=== PATIENT | female | born 1990 | race Caucasian/White ===

== ENCOUNTER → 2018-12-30 | Outpatient (CLI) | payer MEDICARE, MEDICAID ==
[~2018-12-30] MED LIST: DESM10SP6; DESMOPRESSIN; GADOBUTROL 7.5 MMOL/7.5 ML (GADAVIST) VIAL IV ONE; GENOTROPIN; HYDR5TAB2 PO; HYDR5TAB8; LEVO125T6 PO; LEVO137T2; LEVOTHYROXINE; NORE-25; NORTEL PO; [UNRECOGNIZED DRUG - CODE]; [UNRECOGNIZED DRUG - CODE]
[2018-12-30 09:45] LABS: BASOPHILS % (AUTO) 1 % (0-10); EOSINOPHILS # (AUTO) 0.2 10^3/uL (0.0-0.3); EOSINOPHILS % (AUTO) 5 % (0-10); HEMATOCRIT 36 % (35-52); HEMOGLOBIN 12.1 G/DL (11.5-16.0); LYMPHOCYTES # (AUTO) 2.3 X 10^3 (1.0-4.0); LYMPHOCYTES % (AUTO) 69 % (12-44); MEAN CORPUSCULAR HEMOGLOBIN 31 PG (25-34); MEAN CORPUSCULAR HGB CONC 34 G/DL (32-36); MEAN CORPUSCULAR VOLUME 91 FL (80-99); MEAN PLATELET VOLUME 8.8 FL (7.4-10.4); MONOCYTES # (AUTO) 0.3 X 10^3 (0.0-1.0); MONOCYTES % (AUTO) 8 % (0-12); NEUTROPHILS # (AUTO) 0.6 X 10^3 (1.8-7.8); NEUTROPHILS % (AUTO) 18 % (42-75); PLATELET COUNT 255 10^3/uL (130-400); RED CELL DISTRIBUTION WIDTH 12.5 % (10.0-14.5); WHITE BLOOD COUNT 3.3 10^3/uL (4.3-11.0)
[2018-12-30 10:06] LABS: ALANINE AMINOTRANSFERASE 16 U/L (0-55); ALBUMIN 4.3 GM/DL (3.2-4.5); ALKALINE PHOSPHATASE 55 U/L (40-136); BILIRUBIN,TOTAL 0.9 MG/DL (0.1-1.0); BUN/CREATININE RATIO 24; CALCIUM 9.6 MG/DL (8.5-10.1); CARBON DIOXIDE 26 MMOL/L (21-32); CHLORIDE 105 MMOL/L (98-107); CREATININE SERUM 0.84 MG/DL (0.60-1.30); GFR ESTIMATED > 60; GLUCOSE 82 MG/DL (70-105); POTASSIUM 4.2 MMOL/L (3.6-5.0); SODIUM 138 MMOL/L (135-145); TOTAL PROTEIN 6.9 GM/DL (6.4-8.2)
--- NOTE | 2018-12-30 11:58 | Diagnostic Imaging Report ---
PROCEDURE: MR imaging of the brain without contrast. TECHNIQUE: Multiplanar, multisequence MR imaging of the brain was performed without contrast. INDICATION: Prior history of pituitary tumor with surgery in 1995. COMPARISON: No prior MRI studies are available for comparison. FINDINGS: Postcontrast study cannot be performed due to inability to obtain IV access. The ventricular size is normal. Sulcal pattern is unremarkable. There is no diffusion restriction identified. The normal expected flow-voids within the carotid siphons are seen. There is no mass effect. No acute intra-axial or extra-axial hemorrhage is seen. Corpus callosum is unremarkable. The sella appears to be empty. No definite sellar or parasellar mass is seen. Suprasellar region is unremarkable. IMPRESSION: Unremarkable noncontrast MRI of the brain. Dictated by: Dictated on workstation # [id number]
== END ==
LOC: RAD 09:08
PROVIDERS: ATTEND Nurse Practitioner Family
DX: E23.7 Disorder of pituitary gland, unspecified (principal); G43.909 Migraine, unspecified, not intractable, without status migrainosus; Z85.841 Personal history of malignant neoplasm of brain; Z98.890 Other specified postprocedural states
CPT/HCPCS: 36415; 70551; 80053; 84443; 85025

== ENCOUNTER 2022-06-12 13:20 | Inpatient (IN) | payer MEDICARE, MEDICAID ==
[~2022-06-12] VITALS: Ht 172 cm; Wt 72.0 kg
[~2022-06-12 13:20] MED LIST changes: -DESM10SP6; +DESM10SP6 NS; -GADOBUTROL 7.5 MMOL/7.5 ML (GADAVIST) VIAL IV ONE; +HYDR5TAB14; -HYDR5TAB8; -LEVO137T2; +LEVO137T2 PO; -[UNRECOGNIZED DRUG - CODE]; +[UNRECOGNIZED DRUG - CODE] INJ
[2022-06-12] MEDS ORDERED: NS IV 1000 ML 1,000 ML IV SCH ×2 (13:45→18:45)
[2022-06-12 14:30] LABS: BASOPHILS % (AUTO) 0 % (0-10); EOSINOPHILS % (AUTO) 0 % (0-10); HEMATOCRIT 34 % (35-52); LYMPHOCYTES # (AUTO) 0.9 10^3/uL (1.0-4.0); LYMPHOCYTES % (AUTO) 14 % (12-44); MEAN CORPUSCULAR HEMOGLOBIN 33 pg (25-34); MEAN CORPUSCULAR HGB CONC 38 g/dL (32-36); MEAN CORPUSCULAR VOLUME 85 fL (80-99); MEAN PLATELET VOLUME 9.1 fL (9.0-12.2); MONOCYTES # (AUTO) 0.2 10^3/uL (0.0-1.0); MONOCYTES % (AUTO) 4 % (0-12); NEUTROPHILS # (AUTO) 5.5 10^3/uL (1.8-7.8); NEUTROPHILS % (AUTO) 82 % (42-75); PLATELET COUNT 278 10^3/uL (130-400); WHITE BLOOD COUNT 6.6 10^3/uL (4.3-11.0)
[2022-06-12 14:39] LABS: ALBUMIN 3.6 GM/DL (3.2-4.5)
[2022-06-12 14:40] LABS: CALCIUM 7.7 MG/DL (8.5-10.1)
[2022-06-12 14:43] LABS: BILIRUBIN,TOTAL 0.7 MG/DL (0.1-1.0)
[2022-06-12 14:45] LABS: CREATININE SERUM 0.72 MG/DL (0.60-1.30)
--- NOTE | 2022-06-12 14:57 | ED General ---
General Chief Complaint: General Problems/Pain Stated Complaint: DEHYDRATION | ADRENAL INEFFICIENCY Nursing Triage Note: WAS SEEN AT 'S OFFICE X2 DAYS AGO FOR FEVER/N/V. WAS PRESCRIBED ZOFRAN AND SENT HOME WITH A DX OF VIRAL INFECTION. COVID ET FLU NEG. PT STATES SHE IS NOT BETTER. HAS A HX OF ADDRENAL INSUF. Source of Information: Patient Exam Limitations: No Limitations History of Present Illness Date Seen by Provider: Jun 12, 2022 Time Seen by Provider: 14:47 Initial Comments This is a 32-year-old female with a history of adrenal insufficiency, Graves' disease, hypothyroidism who presented to the ER for weakness, dizziness, and nausea. Allergies and Home Medications Allergies Coded Allergies: No Known Drug Allergies (Unverified , 02/08/16) Patient Home Medication List Desmopressin (Nonrefrigerated) (Desmopressin 10 Mcg/0.1 ml Spr) 10 Mcg/0.1 Ml [place].pump, (Reported) Entered as Reported by: CARMELITA MCCOLLUM on 02/08/16929 Hydrocortisone (Hydrocortisone) 5 Mg Tablet, (Reported) Entered as Reported by: CARMELITA MCCOLLUM on 02/08/16 09 Levothyroxine Sodium (Levothyroxine Sodium) 137 Mcg Tablet, (Reported) Entered as Reported by: CARMELITA MCCOLLUM on 02/08/16929 [place], Insulin Disposable (Bd Ultra-Fine Pen Needle) 1 Each Dis.needle, (Reported), (DME) Entered as Reported by: CARMELITA MCCOLLUM on 02/08/16929 Norethindrone-Ethinyl Estrad (Dasetta 1-35-28 Tablet) 1 Each Tablet, (Reported) Entered as Reported by: CARMELITA MCCOLLUM on 02/08/16929 Somatropin (Omnitrope) 5 Mg/1.5 Ml Cartridge, (Reported) Entered as Reported by: CARMELITA MCCOLLUM on 02/08/16929 Past Nsmlgzh-Ndilwg-Nawrjn Hx Patient Social History Tobacco Use?: No Substance use?: No Alcohol Use?: No Immunizations Up To Date Second COVID19 Vaccination Daniel: UNKNOWN 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 oz. 58.853805oq; 22.00 BMI Method:Stated Progress/Results/Core Measures Suspected Sepsis SIRS Temperature: Pulse: 68 Respiratory Rate: 16 Laboratory Tests 06/12/22 14:20: White Blood Count 6.6 Blood Pressure 121 /80 Mean: 94 Laboratory Tests 06/12/22 14:20: Creatinine 0.72, Platelet Count 278, Total Bilirubin 0.7 Results/Orders Lab Results Laboratory Tests Test 06/12/22 14:20 06/12/22 14:31 06/12/22 15:00 06/12/22 15:14 Range/Units White Blood Count 6.6 4.3-11.0 10^3/uL Red Blood Count 3.99 3.80-5.11 10^6/uL Hemoglobin 13.0 11.5-16.0 g/dL Hematocrit 34 L 35-52 % Mean Corpuscular Volume 85 80-99 fL Mean Corpuscular Hemoglobin 33 25-34 pg Mean Corpuscular Hemoglobin Concent 38 H 32-36 g/dL Red Cell Distribution Width 10.9 10.0-14.5 % Platelet Count 278 130-400 10^3/uL Mean Platelet Volume 9.1 9.0-12.2 fL Immature Granulocyte % (Auto) 1 % Neutrophils (%) (Auto) 82 H 42-75 % Lymphocytes (%) (Auto) 14 12-44 % Monocytes (%) (Auto) 4 0-12 % Eosinophils (%) (Auto) 0 0-10 % Basophils (%) (Auto) 0 0-10 % Neutrophils # (Auto) 5.5 1.8-7.8 10^3/uL Lymphocytes # (Auto) 0.9 L 1.0-4.0 10^3/uL Monocytes # (Auto) 0.2 0.0-1.0 10^3/uL Eosinophils # (Auto) 0.0 0.0-0.3 10^3/uL Basophils # (Auto) 0.0 0.0-0.1 10^3/uL Immature Granulocyte # (Auto) 0.0 0.0-0.1 10^3/uL Sodium Level 111 *L 135-145 MMOL/L Potassium Level 4.0 3.6-5.0 MMOL/L Chloride Level 85 L 98-107 MMOL/L Carbon Dioxide Level 17 L 21-32 MMOL/L Anion Gap 9 5-14 MMOL/L Blood Urea Nitrogen 10 7-18 MG/DL Creatinine 0.72 0.60-1.30 MG/DL Estimat Glomerular Filtration Rate 112 BUN/Creatinine Ratio 14 Glucose Level 101 70-105 MG/DL Calcium Level 7.7 L 8.5-10.1 MG/DL Corrected Calcium 8.0 L 8.5-10.1 MG/DL Magnesium Level 1.3 L 1.6-2.4 MG/DL Total Bilirubin 0.7 0.1-1.0 MG/DL Aspartate Amino Transf (AST/SGOT) 27 5-34 U/L Alanine Aminotransferase (ALT/SGPT) 21 0-55 U/L Alkaline Phosphatase 42 40-136 U/L Total Protein 6.0 L 6.4-8.2 GM/DL Albumin 3.6 3.2-4.5 GM/DL Influenza Type A (RT-PCR) Not Detected Not Detecte Influenza Type B (RT-PCR) Not Detected Not Detecte SARS-CoV-2 RNA (RT-PCR) Not Detected Not Detecte Thyroid Stimulating Hormone (TSH) 0.00 L 0.35-4.94 UIU/ML Urine Color YELLOW Urine Clarity CLEAR Urine pH 7.5 5-9 Urine Specific [place] 1.020 1.016-1.022 Urine Protein NEGATIVE NEGATIVE Urine Glucose (UA) NEGATIVE NEGATIVE Urine Ketones 1+ H NEGATIVE Urine Nitrite NEGATIVE NEGATIVE Urine Bilirubin NEGATIVE NEGATIVE Urine Urobilinogen 1.0 < = 1.0 MG/DL Urine Leukocyte Esterase NEGATIVE NEGATIVE Urine RBC (Auto) NEGATIVE NEGATIVE Urine RBC NONE /HPF Urine WBC NONE /HPF Urine Squamous Epithelial Cells 0-2 /HPF Urine Crystals NONE /LPF Urine Bacteria TRACE /HPF Urine Casts NONE /LPF Urine Mucus NEGATIVE /LPF Urine Culture Indicated NO My Orders Orders - FREDA MCCORMICK BOX PRESS OPERATOR Ed Iv/Invasive Line Start (06/12/22 13:45) Cbc With Automated Diff (06/12/22 13:45) Ua Culture If Indicated (06/12/22 13:45) Ns Iv 1000 Ml (Sodium Chloride 0.9%) (06/12/22 13:45) Comprehensive Metabolic Panel (06/12/22 14:09) Influenza A And B By Pcr (06/12/22 14:27) Covid 19 Inhouse Test (06/12/22 14:27) Isolation Central Supply Req (06/12/22 14:27) Magnesium (06/12/22 14:51) Thyroid Stimulating Hormone (06/12/22 15:32) Adrenocorticotropic Hormone (06/12/22 15:32) Hydrocortisone Injection (Solu-Cortef In (06/12/22 15:45) Sodium Urine Random (06/12/22 16:18) Osmolality Urine (06/12/22 16:19) Ed Admission (Communication) (06/12/22 16:34) Medications Given in ED Current Medications Medications Dose Ordered Sig/Errol Route Start Time Stop Time Status Last Admin Dose Admin Hydrocortisone Sodium Succinate 100 mg ONCE ONCE IV 06/12/22 15:45 06/12/22 15:46 DC 06/12/22 15:41 100 MG Vital Signs/I&O 06/12/22 13:45 Temp 36.4 Pulse 68 Resp 16 B/P (MAP) 121/80 (94) Pulse Ox 97 O2 Delivery Room Air Capillary Refill : Less Than 3 Seconds Blood Pressure Mean: 94 Departure Communication (Admissions) Time/Spoke to Admitting Phy: 16:26 Dr. Chowdhury Impression Primary Impression: Hyponatremia Additional Impression: Adrenal insufficiency Disposition: ADMITTED INPATIENT Condition: Stable Admissions Decision to Admit Reason: Admit from ER (General) Decision to Admit/Date: Jun 12, 2022 Time/Decision to Admit Time: 16:37 Departure-Patient Inst. Referrals: JEANETH CHOWDHURY MD (PCP/Family) Primary Care Physician FREDA MCCORMICK BOX PRESS OPERATOR Jun 12, 2022 14:57
[2022-06-12 15:21] LABS: BILIRUBIN,URINE NEGATIVE (NEGATIVE); CLARITY,URINE CLEAR; COLOR,URINE YELLOW; GLUCOSE, URINE (UA) NEGATIVE (NEGATIVE); KETONES,URINE 1+ (NEGATIVE); LEUKOCYTE ESTERASE ,URINE NEGATIVE (NEGATIVE); NITRITE,URINE NEGATIVE (NEGATIVE); PH,URINE 7.5 (5-9); PROTEIN,URINE NEGATIVE (NEGATIVE)
[2022-06-12 15:29] LABS: BACTERIA,URINE TRACE /HPF; SQUAMOUS EPITHELIAL CELL,UR 0-2 /HPF
[2022-06-12] MEDS ORDERED: HYDROCORTISONE 100 MG/2 ML (Solu-CORTEF) VIAL IV ONE (15:45)
[2022-06-12 17:10] VITALS: BP 114/81
[2022-06-12] MEDS ORDERED: ACETAMINOPHEN 325 MG TABLET PO PRN (17:30)
[2022-06-12] MEDS ORDERED: SODIUM CHLORIDE 3% 500 ML IV SCH (17:30)
[2022-06-12] MEDS ORDERED: MAGNESIUM 2 GM/50 ML IVPB 50 ML IV ONE (18:15)
[2022-06-12] MEDS ORDERED: PATIENT MAY USE OWN MEDS, ALL IM SCH (18:15)
--- NOTE | 2022-06-12 18:16 | Tele-ICU Progress Note ---
Subjective Date Seen by a Provider: Jun 12, 2022 Time Seen by a Provider: 18:15 Subjective/Events-last exam (Tele-ICU Physician , consultation as per request of PCP Service provided via interactive audio and video telecommunications E-CARE system to a patient admitted to ICU bed in [facility]. Available chart/ vitals / labs / Images reviewed H&P is from ER notes Patient's information available about PMH, Shx, Fhx allergy reviewed inEMR. ROS as per chart and RN report Now in ICU, hemodynamically stable Video assessment done using teleICU camera, rest of exam as per RN Discussed with RN. Consultants: Hospital course: A/P Fever and N/V 2 days duration - reportedly was NEG flu and covid 2 d ago , both negative today again . 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 - no confusion , no Sz -carefully replace with saline ,- received 1L in er , on 100 cc /h noq , check q 4 h H/o Adrenal insufficiency - on hydrocortisone 5 , desmopressin FREE LANCE ARTIST - w/up sent from ER - follow blood sugar H/o hypothyroidism , on synthroid - now TSH =0 , await T3-4 Lines : periph , (Central Line Necessity Reviewed) Nguyen: OG: Nutrition: Analgesia: Anxiety/ delirium VTE Prophylaxis: Stress Ulcer Prophylaxis: na Plans in collaboration with bedside consultants and IM MDs. Discussed with Dr Chowdhury Discussed with RN to reach out if any questions or concerns A total of 33 minutes of critical care time was devoted to this patient today, required to treat and/or prevent further deterioration of critical care condition ( as above ) . I am remotely monitoring this patient from another state. I am unable to do the bedside exam, and history/physical and pertinent information is taken from other notes in the computer and bedside staff. . Sepsis Event Evaluation Height, Weight, BMI Height: 5'8" Weight: 130lbs. oz. 58.704685qi; 22.98 BMI Method:Stated Exam Exam Patient acknowledged, consented, and participated in this virtual visit which was conducted using real time audio/video Vital Signs Date Time Temp Pulse Resp B/P (MAP) Pulse Ox O2 Delivery O2 Flow Rate FiO2 06/12/22 17:45 70 17 110/74 (86) 92 Room Air 06/12/22 17:34 62 06/12/22 17:30 67 12 111/80 (90) 92 Room Air 06/12/22 17:15 66 12 122/69 (86) 92 Room Air 06/12/22 17:10 63 18 114/81 97 Room Air 06/12/22 13:45 36.4 68 16 121/80 (94) 97 Room Air Height & Weight Height: 5'8" Weight: 130lbs. oz. 58.718597qc; 22.98 BMI Method:Stated General Appearance: No Apparent Distress Capillary Refill: Less Than 3 Seconds Results Lab Laboratory Tests 06/12/22 14:20 Assessment/Plan Assessment/Plan 1 JUSTINO MORENO MD Jun 12, 2022 18:16
[2022-06-12] MEDS ORDERED: NS IV 1000 ML 1,000 ML ONE (18:34)
[2022-06-12] MEDS: MAGNESIUM 1 GM/D5W 100 ML IVPB IV SCH ×2 (18:40→20:02)
[2022-06-12] MEDS: methylPREDNISolone 125 MG (Solu-MEDROL) VIAL IVP SCH ×2 (18:40→23:49)
[2022-06-12 20:07] LABS: POTASSIUM 3.8 MMOL/L (3.6-5.0)
[2022-06-12 20:08] LABS: CALCIUM 7.5 MG/DL (8.5-10.1)
[2022-06-12 20:13] LABS: CREATININE SERUM 0.72 MG/DL (0.60-1.30)
[2022-06-13 00:53] LABS: POTASSIUM 3.5 MMOL/L (3.6-5.0)
[2022-06-13 00:54] LABS: CALCIUM 7.3 MG/DL (8.5-10.1)
[2022-06-13 00:59] LABS: CREATININE SERUM 0.65 MG/DL (0.60-1.30)
[2022-06-13] MEDS: SODIUM CHLORIDE 3% 500 ML IV SCH ×2 (02:20→11:32)
[2022-06-13 05:01] LABS: HEMATOCRIT 35 % (35-52); HEMOGLOBIN 13.1 g/dL (11.5-16.0); MEAN CORPUSCULAR HEMOGLOBIN 32 pg (25-34); MEAN CORPUSCULAR HGB CONC 37 g/dL (32-36); MEAN CORPUSCULAR VOLUME 86 fL (80-99); MEAN PLATELET VOLUME 9.3 fL (9.0-12.2); PLATELET COUNT 225 10^3/uL (130-400); WHITE BLOOD COUNT 3.3 10^3/uL (4.3-11.0)
[2022-06-13 05:17] LABS: ALBUMIN 3.7 GM/DL (3.2-4.5); POTASSIUM 3.8 MMOL/L (3.6-5.0)
[2022-06-13 05:18] LABS: CALCIUM 7.6 MG/DL (8.5-10.1)
[2022-06-13 05:21] LABS: BILIRUBIN,TOTAL 0.7 MG/DL (0.1-1.0)
[2022-06-13 05:23] LABS: CREATININE SERUM 0.68 MG/DL (0.60-1.30)
[2022-06-13] MEDS: HYDROCORTISONE 100 MG/2 ML (Solu-CORTEF) VIAL IV SCH ×3 (05:42→21:14)
[2022-06-13] MEDS: LEVOTHYROXINE 25 MCG (LEVOTHROID) TAB PO SCH (05:42)
[2022-06-13] MEDS: LEVOTHYROXINE 112 MCG (LEVOTHROID) TAB PO SCH (05:43)
[2022-06-13] MEDS ORDERED: LEVOTHYROXINE 125 MCG (LEVOTHROID) TABLET PO SCH (06:30)
--- NOTE | 2022-06-13 08:29 | Tele-ICU Progress Note ---
Subjective Date Seen by a Provider: Jun 13, 2022 Time Seen by a Provider: 08:28 Subjective/Events-last exam (Tele-ICU Physician , Progress Note ) Service provided via interactive audio and video telecommunications E-CARE system to a patient admitted to ICU bed in [facility]. Available chart/ vitals / labs / Images reviewed Video assessment done using teleICU camera, rest of exam as per RN Discussed with RN Events overnight : Afebrile hemodynamically stable Respiratory - I/O = Drips: Pressors- no Consultants: Hospital course: (06/12) 32y F from ER with dehydration, hyponatremia NA 111 and adrenal insuff, hypomag Patient is seen today due to persistent hyponatrremia A/P Fever and N/V 2 days duration - reportedly was NEG flu and covid 2 d ago , both negative today again . 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 Discussed with Dr Chowdhury Discussed with RN to reach out if any questions or concerns A total of 33 minutes of critical care time was devoted to this patient today, required to treat and/or prevent further deterioration of critical care condition ( as above ) . I am remotely monitoring this patient from another state. I am unable to do the bedside exam, and history/physical and pertinent information is taken from other notes in the computer and bedside staff. . Sepsis Event Evaluation Height, Weight, BMI Height: 5'8" Weight: 130lbs. oz. 58.185545fn; 22.98 BMI Method:Stated Exam Exam Patient acknowledged, consented, and participated in this virtual visit which was conducted using real time audio/video Vital Signs Date Time Temp Pulse Resp B/P (MAP) Pulse Ox O2 Delivery O2 Flow Rate FiO2 06/13/22 07:46 36.2 06/13/22 07:00 67 06/13/22 06:00 54 19 104/59 (74) 94 Room Air 06/13/22 05:00 72 26 97/82 (87) 96 Room Air 06/13/22 04:00 95 Room Air 06/13/22 04:00 71 18 97/60 (72) 96 Room Air 06/13/22 03:34 36.4 06/13/22 03:00 62 19 110/77 (88) 92 Room Air 06/13/22 02:00 56 26 118/77 (91) 90 Room Air 06/13/22 01:06 55 06/13/22 01:00 56 18 120/77 (91) 92 Room Air 06/13/22 00:00 56 12 115/79 (91) 94 Room Air 06/13/22 00:00 94 Room Air 06/12/22 23:40 36.5 06/12/22 23:00 58 12 113/79 (90) 94 Room Air 06/12/22 22:00 80 22 115/78 (90) 93 Room Air 06/12/22 21:00 58 12 111/76 (88) 90 Room Air 06/12/22 20:29 75 28 114/78 (90) 92 Room Air 06/12/22 20:00 36.4 06/12/22 20:00 93 Room Air 06/12/22 19:32 55 06/12/22 19:00 71 20 113/90 (98) 91 Room Air 06/12/22 18:15 75 17 120/91 (101) 92 Room Air 06/12/22 18:00 75 14 112/80 (91) 91 Room Air 06/12/22 17:45 70 17 110/74 (86) 92 Room Air 06/12/22 17:34 62 06/12/22 17:30 Room Air 06/12/22 17:30 67 12 111/80 (90) 92 Room Air 06/12/22 17:15 66 12 122/69 (86) 92 Room Air 06/12/22 17:10 63 18 114/81 97 Room Air 06/12/22 13:45 36.4 68 16 121/80 (94) 97 Room Air I & O 06/13/22 07:00 Intake Total 2325 ml Output Total 950 ml Balance 1375 ml Height & Weight Height: 5'8" Weight: 130lbs. oz. 58.168637ue; 22.98 BMI Method:Stated General Appearance: No Apparent Distress Capillary Refill: Less Than 3 Seconds Results Lab Laboratory Tests 06/12/22 14:20 06/12/22 19:55 06/13/22 00:35 06/13/22 04:29 Assessment/Plan Assessment/Plan 1 JUSTINO MORENO MD Jun 13, 2022 08:29
--- NOTE | 2022-06-13 08:30 | Diagnostic Imaging Report ---
EXAMINATION: Chest 1 view HISTORY: Central line placement COMPARISON: None available. FINDINGS: Heart size and pulmonary vasculature are normal. The lungs are clear without consolidation, pleural effusion, or pneumothorax. The osseous structures are intact. A right IJ central line is present with the tip projecting over the SVC. IMPRESSION: 1. No acute radiographic abnormality in the chest. 2. Right IJ central line with the tip projecting over the SVC. No pneumothorax. Dictated by: Dictated on workstation # [id number]
[2022-06-13] MEDS ORDERED: PATIENT MAY USE OWN MEDS, ALL PO SCH (09:00)
--- NOTE | 2022-06-13 09:18 | History & Physicial ---
History of Present Illness History of Present Illness Reason for visit/HPI Pt is a 32 y/o female who is known to my clinic. Liz has been ill since Friday of last week. She states that she had nausea, some emesis, and loose stools. She reports feeling weak, shaking, some muscle tremors but not chills. She reports some nasal congestion, slight cough. She denies missing any medications or knowingly having any of her medications come up with emesis. Date of Admission Jun 12, 2022 at 17:22 Date Seen by a Provider: Jun 13, 2022 Time Seen by a Provider: 08:45 I consulted on this patient on 06/13/22 09:18 Attending Physician Jeaneth Chowdhury MD Admitting Physician Admitting Physician: Jeaneth Chowdhury MD Attending Physician: Jeaneth Chowdhury MD Consult EICU Allergies and Home Medications Allergies Coded Allergies: No Known Drug Allergies (Unverified , 02/08/16) Patient Home Medication List Home Medication List Reviewed: Yes Ascorbate Calcium (Vitamin C) 500 Mg Tablet, 1,000 MG PO DAILY, (Reported) Entered as Reported by: KRISTIAN TILLMAN on 06/13/221123 Last Action: Held Calcium Carbonate (Calcium Carbonate) 200 Mg Calcium (500 Mg) Tab.chew, 200 MG PO DAILY, (Reported) Entered as Reported by: KRISTIAN TILLMAN on 06/13/221123 Last Action: Continued Cholecalciferol (Vitamin D3) (Vitamin D3) 25 Mcg (1000 Unit) Capsule, 50 MCG PO DAILY, (Reported) Entered as Reported by: KRISTIAN TILLMAN on 06/13/221123 Last Action: Converted Desmopressin (Nonrefrigerated) (Desmopressin 10 Mcg/0.1 ml Spr) 10 Mcg/[place] (0.1 Ml) [place].pump, 2 SPRAYS NS BID, (Reported) Entered as Reported by: CARMELITA MCCOLLUM on 02/08/16 0930 Last Action: Reviewed Desmopressin Acetate (Desmopressin Acetate) 0.2 Mg Tablet, 0.4 MG PO BID PRN for WHEN OUT OF DESMOPRESSIN SPRAY, (Reported) Entered as Reported by: KRISTIAN TILLMAN on 06/13/221123 Last Action: Reviewed Hydrocortisone (Hydrocortisone) 10 Mg Tablet, 30 MG PO DAILY, (Reported) Entered as Reported by: KRISTIAN TILLMAN on 06/13/221123 Last Action: Reviewed Hydrocortisone (Hydrocortisone) 10 Mg Tablet, 20 MG PO 1900, (Reported) Entered as Reported by: KRISTIAN TILLMAN on 06/13/221123 Last Action: Reviewed Hydrocortisone Sod Succinate (Solu-Cortef) 100 Mg Vial, 100 MG IJ UD PRN for ADRENAL CRISIS, (Reported) Entered as Reported by: KRISTIAN TILLMAN on 06/13/221123 Last Action: Reviewed Levothyroxine Sodium (Levothyroxine Sodium) 137 Mcg Tablet, 137 MCG PO DAILY, (Reported) Entered as Reported by: CARMELITA MCCOLLUM on 02/08/16929 Last Action: Reviewed Multivitamin (Multivitamin) 1 Each Tablet, 1 EACH PO DAILY, (Reported) Entered as Reported by: KRISTIAN TILLMAN on 06/13/221123 Last Action: Held Norethindrone-Ethinyl Estrad ([place] 1-35-28 Tablet) 1 Mg-35 Mcg Tablet, 1 EA PO HS, (Reported) Entered as Reported by: KRISTIAN TILLMAN on 06/13/221123 Last Action: Converted Nystatin (Nystatin) 100,000 Unit/Ml Oral.susp, 5-10 ML PO QID, (Reported) Entered as Reported by: KRISTIAN TILLMAN on 06/13/221123 Last Action: Held Ondansetron (Ondansetron Odt) 4 Mg Tab.rapdis, 4 MG PO QID PRN for NAUSEA/VOMITING-1ST LINE, (Reported) Entered as Reported by: KRISTIAN TILLMAN on 06/13/221123 Last Action: Reviewed Somatropin (Omnitrope) 5 Mg/1.5 Ml (3.3 Mg/Ml) Cartridge, 1 MG INJ HS, (Reported) Entered as Reported by: CARMELITA MCCOLLUM on 02/08/16929 Last Action: Reviewed Discontinued Medications Hydrocortisone (Hydrocortisone) 5 Mg Tablet, (Reported) Discontinued Reason: No Longer Taking Entered as Reported by: CARMELITA MCCOLLUM on 02/08/16929 Last Action: Discontinued [place], Insulin Disposable (Bd Ultra-Fine Pen Needle) 1 Each Dis.needle, (Reported), (DME) Discontinued Reason: No Longer Taking Entered as Reported by: CARMELITA MCCOLLUM on 02/08/16929 Last Action: Discontinued Norethindrone-Ethinyl Estrad (Dasetta 1-35-28 Tablet) 1 Each Tablet, (Reported) Discontinued Reason: No Longer Taking Entered as Reported by: CARMELITA MCCOLLUM on 02/08/16 0930 Last Action: Discontinued Past Saedyao-Nlaehh-Buvwgd Hx Patient Social History Marrital Status: single Number of Children: 0 Number of living children: 0 Living Status: lives in [place], works at [employer] Employed/Student: employed ([employer]) Smoking Status: Never a Smoker 2nd Hand Smoke Exposure: No Recent Hopitalizations: No Have you traveled recently?: No Alcohol Use?: No Pt feels they are or have been: No Surgeries Yes Neurological (craniotomy 1995) Respiratory No Currently Using CPAP: No Currently Using BIPAP: No Cardiovascular No Neurological Brain Tumor Reproductive System Last Menstrual Period: May 20, 2022 Hx Reproductive Disorders: No Sexually Transmitted Disease: No Genitourinary Yes (vulvovaginal atrophy) Musculoskeletal No Endocrine History of Endocrine Disorders: Yes Endocrine Disorders: Adrenal Disease, Hypothyroidsim Are Your Blood Sugars Over 250: No HEENT History of HEENT Disorders: No Loss of Vision: Denies Hearing Impairment: Denies Cancer Yes Brain (brain tumor) Type of Treatment: Surgical Intervention Psychosocial History of Psychiatric Problem: No Integumentary History of Skin or Integumenta: No Reviewed Nursing Assessment Reviewed/Agree w Nursing PMH: Yes Family Medical History Significant Family History: No Pertinent Family Hx Review of Systems Constitutional: No chills, No diaphoresis; dizziness; No fever; weakness EENTM: No hoarseness, No nose pain Respiratory: No cough, No short of breath Cardiovascular: No chest pain Gastrointestinal: No abdominal pain, No constipation, No diarrhea, No loss of appetite, No melena; nausea Genitourinary: no symptoms reported Skin: no symptoms reported Psychiatric/Neurological: No Symptoms Reported; Denies Anxiety, Denies Depressed; Weakness All Other Systems Reviewed Negative Unless Noted: Yes Physical Exam Vital Signs Vital Signs - First Documented 06/12/22 13:45 Temp 36.4 Pulse 68 Resp 16 B/P (MAP) 121/80 (94) Pulse Ox 97 O2 Delivery Room Air Capillary Refill : Less Than 3 Seconds Height, Weight, BMI Height: 5'8" Weight: 130lbs. oz. 58.503242pc; 22.98 BMI Method:Stated General Appearance: No Apparent Distress, WD/WN Eyes: Bilateral Eye Normal Inspection, Bilateral Eye PERRL, Bilateral Eye EOMI HEENT: PERRL/EOMI, Pharynx Normal Neck: Full Range of Motion, Normal Inspection, Non Tender, Supple Respiratory: Chest Non Tender, Lungs Clear, Normal Breath Sounds, No Accessory Muscle Use, No Respiratory Distress Cardiovascular: Regular Rate, Rhythm Gastrointestinal: Normal Bowel Sounds, No Organomegaly, No Pulsatile Mass, Non Tender, Soft Rectal: Deferred Extremity: Normal Capillary Refill, Normal Inspection, Non Tender, No Calf Tenderness, No Pedal Edema Neurologic/Psychiatric: Alert, Oriented x3, No Motor/Sensory Deficits, Normal Mood/Affect, information services assistant II-XII Norm as Tested Skin: Normal Color, Warm/Dry Lymphatic: No Adenopathy Assessment/Plan Assessment and Plan Severe Hyponatremia Hypocalcemia Chronic Hypothyroidism Muscle Weakness Chronic Adrenal Insufficiency Chronic Steroid use Severe Hyponatremia due to previous viral illness - pt was started on normal saline on admission, pt was given hypertonic saline starting at 3AM - slowly increased sodium level, dose will be decreased - and monitoring sodium level every 4 hours. Hypocalcemia - continue with oral supplementation Chronic Hypothyroidism - waiting on rest of thyroid labs, resume home regimen Muscle Weakness - due to hyponatremia Chronic Adrenal Insufficiency - restarted home desmopressin, pt given stress doses of hydrocortisone. Chronic Steroid use - continue with current management. dvt prophylaxis with scd's gi prophylaxis with ppi Admission Diagnosis Severe Hyponatremia Hypocalcemia Chronic Hypothyroidism Muscle Weakness Chronic Adrenal Insufficiency Chronic Steroid use Admission Status: Inpatient Order (span 2 midnights) Reason for Inpatient Admission: inpatient admission for severe hyponatremia JEANETH CHOWDHURY MD Jun 13, 2022 09:18
[2022-06-13 09:28] LABS: CALCIUM 7.7 MG/DL (8.5-10.1); CREATININE SERUM 0.71 MG/DL (0.60-1.30); POTASSIUM 3.3 MMOL/L (3.6-5.0)
[2022-06-13] MEDS ORDERED: ASCO-262 PO (11:24)
[2022-06-13] MEDS ORDERED: NORE-18 PO (11:24)
[2022-06-13] MEDS ORDERED: CALC500T47 PO (11:24)
[2022-06-13] MEDS ORDERED: CHOL10007 PO (11:24)
[2022-06-13] MEDS ORDERED: NYST1000 PO (11:24)
[2022-06-13] MEDS ORDERED: ONDA4TAB11 PO (11:24)
[2022-06-13] MEDS ORDERED: MULT-1136 PO (11:24)
[2022-06-13] MEDS ORDERED: HYDR100V3 IJ (11:24)
[2022-06-13] MEDS ORDERED: DESM0.2T29 PO (11:24)
[2022-06-13] MEDS ORDERED: HYDR-4164 PO ×2 (11:24)
[2022-06-13] MEDS: PATIENT'S OWN MED (RX USE ONLY) PO SCH ×2 (11:32→20:25)
[2022-06-13 13:15] LABS: CALCIUM 7.8 MG/DL (8.5-10.1); CREATININE SERUM 0.69 MG/DL (0.60-1.30)
[2022-06-13] MEDS ORDERED: KCL 20 MEQ TAB (K-DUR) PO NR (13:45)
[2022-06-13] MEDS ORDERED: NS IV 500 ML 500 ML IV PRN (13:45)
[2022-06-13 17:09] LABS: CALCIUM 8.4 MG/DL (8.5-10.1); CREATININE SERUM 0.76 MG/DL (0.60-1.30); POTASSIUM 3.6 MMOL/L (3.6-5.0)
--- NOTE | 2022-06-13 19:45 | Consultation - Surgery ---
History of Present Illness History of Present Illness Patient Consulted On(heather/time) 06/13/22 07:40 Date Seen by Provider: Jun 13, 2022 Time Seen by Provider: 07:00 History of Present Illness Consult requested by eICU for central line placement. Patient is a 32 year old female with chronic adrenal insufficiency. She has not been feeling well since last weekend. She was seen by urgent care and was told she had a virus. She has been having fever, nausea and vomiting. Not able to keep things down. Also with loose stools. Some upper respiratory symptoms of congestion and cough. Still not feeling well so went to ED yesterday. Was found to have hyponatremia. Continued to be low so was started on 3% sodium chloride and needing central line. Allergies and Home Medications Allergies Coded Allergies: No Known Drug Allergies (Unverified , 02/08/16) Patient Home Medication List Home Medication List Reviewed: Yes Ascorbate Calcium (Vitamin C) 500 Mg Tablet, 1,000 MG PO DAILY, (Reported) Entered as Reported by: KRISTIAN TILLMAN on 06/13/221123 Last Action: Held Calcium Carbonate (Calcium Carbonate) 200 Mg Calcium (500 Mg) Tab.chew, 200 MG PO DAILY, (Reported) Entered as Reported by: KRISTIAN TILLMAN on 06/13/221123 Last Action: Continued Cholecalciferol (Vitamin D3) (Vitamin D3) 25 Mcg (1000 Unit) Capsule, 50 MCG PO DAILY, (Reported) Entered as Reported by: KRISTIAN TILLMAN on 06/13/221123 Last Action: Converted Desmopressin (Nonrefrigerated) (Desmopressin 10 Mcg/0.1 ml Spr) 10 Mcg/[place] (0.1 Ml) [place].pump, 2 SPRAYS NS BID, (Reported) Entered as Reported by: CARMELITA MCCOLLUM on 02/08/16 0930 Last Action: Reviewed Desmopressin Acetate (Desmopressin Acetate) 0.2 Mg Tablet, 0.4 MG PO BID PRN for WHEN OUT OF DESMOPRESSIN SPRAY, (Reported) Entered as Reported by: KRISTIAN TILLMAN on 06/13/221123 Last Action: Reviewed Hydrocortisone (Hydrocortisone) 10 Mg Tablet, 30 MG PO DAILY, (Reported) Entered as Reported by: KRISTIAN TILLMAN on 06/13/221123 Last Action: Reviewed Hydrocortisone (Hydrocortisone) 10 Mg Tablet, 20 MG PO 1900, (Reported) Entered as Reported by: KRISTIAN TILLMAN on 06/13/221123 Last Action: Reviewed Hydrocortisone Sod Succinate (Solu-Cortef) 100 Mg Vial, 100 MG IJ UD PRN for ADRENAL CRISIS, (Reported) Entered as Reported by: KRISTIAN TILLMAN on 06/13/221123 Last Action: Reviewed Levothyroxine Sodium (Levothyroxine Sodium) 137 Mcg Tablet, 137 MCG PO DAILY, (Reported) Entered as Reported by: CARMELITA MCCOLLUM on 02/08/16929 Last Action: Reviewed Multivitamin (Multivitamin) 1 Each Tablet, 1 EACH PO DAILY, (Reported) Entered as Reported by: KRISTIAN TILLMAN on 06/13/221123 Last Action: Held Norethindrone-Ethinyl Estrad ([place]lyacen 1-35-28 Tablet) 1 Mg-35 Mcg Tablet, 1 EA PO HS, (Reported) Entered as Reported by: KRISTIAN TILLMAN on 06/13/221123 Last Action: Converted Nystatin (Nystatin) 100,000 Unit/Ml Oral.susp, 5-10 ML PO QID, (Reported) Entered as Reported by: KRISTIAN TILLMAN on 06/13/221123 Last Action: Held Ondansetron (Ondansetron Odt) 4 Mg Tab.rapdis, 4 MG PO QID PRN for NAUSEA/VOMITING-1ST LINE, (Reported) Entered as Reported by: KRISTIAN TILLMAN on 06/13/221123 Last Action: Reviewed Somatropin (Omnitrope) 5 Mg/1.5 Ml (3.3 Mg/Ml) Cartridge, 1 MG INJ HS, (Reported) Entered as Reported by: CARMELITA MCCOLLUM on 02/08/16929 Last Action: Reviewed Discontinued Medications Hydrocortisone (Hydrocortisone) 5 Mg Tablet, (Reported) Discontinued Reason: No Longer Taking Entered as Reported by: CARMELITA MCCOLLUM on 02/08/16929 Last Action: Discontinued [place], Insulin Disposable (Bd Ultra-Fine Pen Needle) 1 Each Dis.needle, (Reported), (DME) Discontinued Reason: No Longer Taking Entered as Reported by: CARMELITA MCCOLLUM on 02/08/16929 Last Action: Discontinued Norethindrone-Ethinyl Estrad ([place] 1-35-28 Tablet) 1 Each Tablet, (Reported) Discontinued Reason: No Longer Taking Entered as Reported by: CARMELITA MCCOLLUM on 02/08/16 7876 Last Action: Discontinued Past Wmkoiml-Dpvfjv-Ecsimr Hx Patient Social History Smoking Status: Never a Smoker 2nd Hand Smoke Exposure: No Recent Hopitalizations: No Alcohol Use?: No Have you traveled recently?: No Surgeries History of Surgeries: Yes Surgeries: Neurological (craniotomy 1995) Respiratory History of Respiratory Disorde: No Cardiovascular History of Cardiac Disorders: No Neurological Neurological Disorders: Brain Tumor Reproductive System Hx Reproductive Disorders: No Sexually Transmitted Disease: No Genitourinary History of Genitourinary Disor: Yes (vulvovaginal atrophy) Musculoskeletal History of Musculoskeletal Dis: No Endocrine History of Endocrine Disorders: Yes Endocrine Disorders: Adrenal Disease, Hypothyroidsim HEENT History of HEENT Disorders: No Loss of Vision: Denies Hearing Impairment: Denies Cancer History of Cancer: Yes Cancer: Brain (brain tumor) Psychosocial History of Psychiatric Problem: No Integumentary History of Skin or Integumenta: No Reviewed Nursing Assessment Reviewed/Agree w Nursing PMH: Yes Family Medical History Significant Family History: No Pertinent Family Hx Review of Systems-General Constitutional: fever, weakness EENTM: No blurred vision, No double vision Respiratory: cough; No dyspnea on exertion, No short of breath Cardiovascular: No chest pain, No palpitations Gastrointestinal: No abdominal pain; nausea, vomiting Genitourinary: No decreased output, No discharge Musculoskeletal: No back pain, No joint pain Skin: No change in color, No change in hair/nails Psychiatric/Neurological: Denies Anxiety, Denies Depressed, Denies Emotional Problems All Other Systems Reviewed Negative Unless Noted: Yes (Negative excepted noted.) Physical Exam-General Problems Physical Exam Vital Signs Vital Signs - First Documented 06/12/22 13:45 Temp 36.4 Pulse 68 Resp 16 B/P (MAP) 121/80 (94) Pulse Ox 97 O2 Delivery Room Air Capillary Refill : Less Than 3 Seconds General Appearance: WD/WN, no apparent distress HEENT: PERRL/EOMI, normal ENT inspection Neck: non-tender, supple Respiratory: chest non-tender, no respiratory distress, no accessory muscle use Cardiovascular: regular rate, rhythm, no JVD Gastrointestinal: non tender, soft Rectal: deferred Back: no CVA tenderness, no vertebral tenderness Extremities: normal range of motion, normal inspection Neurologic/Psychiatric: alert, normal mood/affect, oriented x 3 Skin: normal color, warm/dry Lymphatic: no adenopathy Data Review Labs Laboratory Tests 06/12/22 19:55: Sodium Level 113*L, Potassium Level 3.8, Chloride Level 86L, Carbon Dioxide Level 14L, Anion Gap 13, Blood Urea Nitrogen 8, Creatinine 0.72, Estimat Glomerular Filtration Rate 112, BUN/Creatinine Ratio 11, Glucose Level 117H, Calcium Level 7.5L 06/12/22 20:36: Glucometer 131H 06/13/22 00:35: Sodium Level 112*L, Potassium Level 3.5L, Chloride Level 84L, Carbon Dioxide Level 14L, Anion Gap 14, Blood Urea Nitrogen 7, Creatinine 0.65, Estimat Glomerular Filtration Rate 118, BUN/Creatinine Ratio 11, Glucose Level 110H, Calcium Level 7.3L 06/13/22 04:29: Sodium Level 114*L, Potassium Level 3.8, Chloride Level 86L, Carbon Dioxide Level 15L, Anion Gap 13, Blood Urea Nitrogen 7, Creatinine 0.68, Estimat Glomerular Filtration Rate 117, BUN/Creatinine Ratio 10, Glucose Level 113H, Calcium Level 7.6L, White Blood Count 3.3L, Red Blood Count 4.13, Hemoglobin 13.1, Hematocrit 35, Mean Corpuscular Volume 86, Mean Corpuscular Hemoglobin 32, Mean Corpuscular Hemoglobin Concent 37H, Red Cell Distribution Width 10.7, Platelet Count 225, Mean Platelet Volume 9.3, Corrected Calcium 7.8L, Total Bilirubin 0.7, Aspartate Amino Transf (AST/SGOT) 27, Alanine Aminotransferase (ALT/SGPT) 22, Alkaline Phosphatase 38L, Total Protein 6.0L, Albumin 3.7 06/13/22 08:57: Sodium Level 118*L, Potassium Level 3.3L, Chloride Level 89L, Carbon Dioxide Level 21, Anion Gap 8, Blood Urea Nitrogen 8, Creatinine 0.71, Estimat Glomerular Filtration Rate 114, BUN/Creatinine Ratio 11, Glucose Level 148H, Calcium Level 7.7L 06/13/22 10:36: Glucometer 135H 06/13/22 12:45: Sodium Level 119*L, Potassium Level 3.0L, Chloride Level 91L, Carbon Dioxide Level 21, Anion Gap 7, Blood Urea Nitrogen 10, Creatinine 0.69, Estimat Glomerular Filtration Rate 117, BUN/Creatinine Ratio 14, Glucose Level 135H, Calcium Level 7.8L 06/13/22 15:48: Glucometer 110 06/13/22 16:48: Sodium Level 128L, Potassium Level 3.6, Chloride Level 96L, Carbon Dioxide Level 22, Anion Gap 10, Blood Urea Nitrogen 10, Creatinine 0.76, Estimat Glomerular Filtration Rate 105, BUN/Creatinine Ratio 13, Glucose Level 108H, Calcium Level 8.4L Microbiology 06/12/22 MRSA Screen - Final, Complete MRSA not isolated Assessment/Plan Assessment/Plan Assessment/Plan hyponatremia chronic adrenal insufficiency Patient being given hypertonic saline and needing central venous access we discussed risk and benefits of procedure and she wishes to proceed. consent was obtained central line placed chest x ray pending will sign off, call if needed. VISHNU REYES DO Jun 13, 2022 19:45
[2022-06-13 20:16] LABS: CALCIUM 8.2 MG/DL (8.5-10.1); CREATININE SERUM 0.78 MG/DL (0.60-1.30); POTASSIUM 3.6 MMOL/L (3.6-5.0)
--- NOTE | 2022-06-13 20:21 | OPERATIVE REPORT ---
DATE OF SERVICE: 06/13/2022 PREOPERATIVE DIAGNOSES: Hyponatremia and adrenal insufficiency. POSTOPERATIVE DIAGNOSES: Hyponatremia and adrenal insufficiency. PROCEDURE: Right internal jugular vein ultrasound-guided central line placement. SURGEON: Vishnu Salgado DO. ANESTHESIA: Local. ESTIMATED BLOOD LOSS: Minimal. COMPLICATIONS: None. INDICATIONS: The patient is a 32-year-old female with adrenal insufficiency and hyponatremia. The patient needing central line placement for further medical management. She understands risks and benefits of procedure and wished to proceed. Consent was signed on chart. DESCRIPTION OF PROCEDURE: The patient was prepped and draped in sterile fashion. Timeout was performed. Ultrasound was used to isolate the right internal jugular vein after she was positioned. Local anesthetic with 3 mL of 1% lidocaine was used to anesthetize the area. The right internal jugular vein was then accessed under ultrasound guidance. Dark nonpulsatile blood was withdrawn. The guidewire was inserted through the needle and the needle was removed. An 11 blade scalpel was used to make a small skin incision. Dilator was then advanced over the wire and removed. The triple lumen catheter was then advanced over the guidewire and the wire was removed. All three ports were accessed and then flushed without difficulty. The catheter was secured with a 3-0 silk suture. The area was washed and dried and sterile bandage was applied. The patient tolerated the procedure well with no complications. Chest x-ray pending. Job ID: [id number] DocumentID: [id number] Dictated Date: 06/13/2022 16:32:59 Bridge Welder Date: 06/13/2022 20:18:00 Dictated By: VISHNU SALGADO DO
[2022-06-14 03:20] LABS: BASOPHILS % (AUTO) 0 % (0-10); EOSINOPHILS % (AUTO) 0 % (0-10); HEMATOCRIT 34 % (35-52); HEMOGLOBIN 12.4 g/dL (11.5-16.0); LYMPHOCYTES # (AUTO) 0.7 10^3/uL (1.0-4.0); LYMPHOCYTES % (AUTO) 8 % (12-44); MEAN CORPUSCULAR HEMOGLOBIN 32 pg (25-34); MEAN CORPUSCULAR HGB CONC 37 g/dL (32-36); MEAN CORPUSCULAR VOLUME 88 fL (80-99); MEAN PLATELET VOLUME 9.4 fL (9.0-12.2); MONOCYTES # (AUTO) 0.5 10^3/uL (0.0-1.0); MONOCYTES % (AUTO) 6 % (0-12); NEUTROPHILS # (AUTO) 7.3 10^3/uL (1.8-7.8); NEUTROPHILS % (AUTO) 85 % (42-75); PLATELET COUNT 244 10^3/uL (130-400); WHITE BLOOD COUNT 8.6 10^3/uL (4.3-11.0)
[2022-06-14 03:29] LABS: POTASSIUM 3.9 MMOL/L (3.6-5.0)
[2022-06-14 03:34] LABS: CREATININE SERUM 0.72 MG/DL (0.60-1.30); PHOSPHORUS 1.3 MG/DL (2.3-4.7)
[2022-06-14 03:37] LABS: MAGNESIUM 2.3 MG/DL (1.6-2.4)
[2022-06-14 04:16] LABS: ATYPICAL LYMPHOCYTES 1 %; LYMPHOCYTES % (MANUAL) 7 %; MONOCYTES % (MANUAL) 6 %; NEUTROPHILS % (MANUAL) 86 %; RBC MORPH NORMAL
[2022-06-14] MEDS ORDERED: KCL 20 MEQ TAB (K-DUR) PO SCH (06:00)
[2022-06-14] MEDS ORDERED: POTASSIUM CL 10MEQ/50ML IVPB 50 ML IV SCH (06:00)
[2022-06-14] MEDS ORDERED: MAGNESIUM 1 GM/100 ML IVPB 100 ML IV SCH (06:00)
[2022-06-14] MEDS: HYDROCORTISONE 100 MG/2 ML (Solu-CORTEF) VIAL IV SCH (06:23)
[2022-06-14] MEDS: LEVOTHYROXINE 112 MCG (LEVOTHROID) TAB PO SCH (06:23)
[2022-06-14] MEDS: LEVOTHYROXINE 25 MCG (LEVOTHROID) TAB PO SCH (06:23)
[2022-06-14] MEDS ORDERED: POTASSIUM PHOSPHATE INJ 30 MM in NS (IVPB) 250 ML IV ONE (07:00)
--- NOTE | 2022-06-14 08:06 | Discharge Summary ---
Diagnosis/Chief Complaint Date of Admission Jun 12, 2022 at 17:22 Date of Discharge 06/14/22 Discharge Date: Jun 14, 2022 Discharge Time: 11:00 Admission Diagnosis Admission Diagnosis Severe Hyponatremia Hypocalcemia Chronic Hypothyroidism Muscle Weakness Chronic Adrenal Insufficiency Chronic Steroid use Discharge Diagnosis Severe Hyponatremia Hypocalcemia Chronic Hypothyroidism Muscle Weakness Chronic Adrenal Insufficiency Chronic Steroid use Reason Hospital Visit Pt is a 32 y/o female who is known to my clinic. Liz has been ill since Friday of last week. She states that she had nausea, some emesis, and loose stools. She reports feeling weak, shaking, some muscle tremors but not chills. She reports some nasal congestion, slight cough. She denies missing any medications or knowingly having any of her medications come up with emesis. Discharge Summary Procedures: central line Consultations eicu - critical care general surgery for central line placement Discharge Physical Examination Allergies: Coded Allergies: No Known Drug Allergies (Unverified , 02/08/16) Vitals & I&Os Vital Signs Date Time Temp Pulse Resp B/P (MAP) Pulse Ox O2 Delivery O2 Flow Rate FiO2 06/14/22 10:00 57 109/63 (78) 96 Room Air 06/14/22 07:45 36.8 06/13/22 22:00 12 General Appearance: Alert, Oriented X3, Cooperative, No Acute Distress HEENT: Atraumatic, PERRLA, Mucous Memb Moist/[place] Respiratory: Clear to Auscultation, Normal Air Movement Cardiovascular: Regular Rate, No Murmurs Abdominal: Normal Bowel Sounds, Soft, No Tenderness Extremities: No Clubbing, No Cyanosis Skin: No Rashes, No Breakdown, No Significant Lesion Neuro: Normal Speech Psych/Mental Status: Mental Status NL, Mood NL Hospital Course Was the Problem List Reviewed?: Yes Severe Hyponatremia Hypocalcemia Chronic Hypothyroidism Muscle Weakness Chronic Adrenal Insufficiency Chronic Steroid use Severe Hyponatremia due to previous viral illness - pt was started on normal saline on admission, pt was given hypertonic saline starting at 3AM on 06/13/22 with slowly increased sodium level - this was stopped and pt was started on normal saline solution with sodium level at 131 this morning. We will have Liz get a chemistry panel next Friday. - she was encouraged to start drinking some gatorade/powerade or other electrolyte solution to keep her levels improved. Hypocalcemia - continue with oral supplementation Chronic Hypothyroidism - resumed home regimen - will consider change of her medication as outp atient. Muscle Weakness - improved Chronic Adrenal Insufficiency with Chronic Steroid use - restarted home desmopressin, pt given stress doses of hydrocortisone. - will continue with higher dose of hydrocortisone - 50mg bid x 5 days then go back down to hydrocortisone split dosing of 30mg AM and 20mg 1900. discharge to home today with pt to have outpatient labs on 06/17/22 dvt prophylaxis with scd's gi prophylaxis with ppi Pending Labs Laboratory Tests 06/14/22 03:10: White Blood Count 8.6, Red Blood Count 3.84, Hemoglobin 12.4, Hematocrit 34, Mean Corpuscular Volume 88, Mean Corpuscular Hemoglobin 32, Mean Corpuscular Hemoglobin Concent 37, Red Cell Distribution Width 11.4, Platelet Count 244, Mean Platelet Volume 9.4, Immature Granulocyte % (Auto) 1, Neutrophils (%) (Auto) 85, Lymphocytes (%) (Auto) 8, Monocytes (%) (Auto) 6, Eosinophils (%) (Auto) 0, Basophils (%) (Auto) 0, Neutrophils # (Auto) 7.3, Lymphocytes # (Auto) 0.7, Monocytes # (Auto) 0.5, Eosinophils # (Auto) 0.0, Basophils # (Auto) 0.0, Immature Granulocyte # (Auto) 0.1, Neutrophils % (Manual) 86, Lymphocytes % (Manual) 7, Monocytes % (Manual) 6, Atypical Lymphocytes 1, Blood Morphology Comment NORMAL, Sodium Level 131, Potassium Level 3.9, Chloride Level 101, Carbon Dioxide Level 21, Anion Gap 9, Blood Urea Nitrogen 14, Creatinine 0.72, Estimat Glomerular Filtration Rate 112, BUN/Creatinine Ratio 19, Glucose Level 131, Calcium Level 8.0, Phosphorus Level 1.3, Magnesium Level 2.3 06/14/22 06:16: Glucometer 119 06/14/22 10:10: Sodium Level 131, Potassium Level 3.6, Chloride Level 100, Carbon Dioxide Level 22, Anion Gap 9, Blood Urea Nitrogen 14, Creatinine 0.73, Estimat Glomerular Filtration Rate 111, BUN/Creatinine Ratio 19, Glucose Level 120, Calcium Level 8.0 06/14/22 10:43: Glucometer 107 Discharge Condition at discharge improved Instructions to patient/family Please see electronic discharge instructions given to patient. Discharge Medications Active Scripts Active Hydrocortisone 20 Mg Tablet 50 Mg PO BID 5 Days take 2.5 pills bid x 5 days then resume previous dosing regimen of hydrocortisone Reported Vitamin D3 (Cholecalciferol (Vitamin D3)) 25 Mcg (1000 Unit) Capsule 50 Mcg PO DAILY Vitamin C (Ascorbate Calcium) 500 Mg Tablet 1,000 Mg PO DAILY Calcium Carbonate 200 Mg Calcium (500 Mg) Tab.chew 200 Mg PO DAILY Multivitamin 1 Each Tablet 1 Each PO DAILY Solu-Cortef (Hydrocortisone Sod Succinate) 100 Mg Vial 100 Mg IJ UD PRN Desmopressin Acetate 0.2 Mg Tablet 0.4 Mg PO BID PRN TAKES 2 (0.2MG) TABS Hydrocortisone 10 Mg Tablet 20 Mg PO 1900 TAKES 2 (10MG) TABS Hydrocortisone 10 Mg Tablet 30 Mg PO DAILY TAKES 3 (10MG) TABS Alyacen 1-35-28 Tablet (Norethindrone-Ethinyl Estrad) 1 Mg-35 Mcg Tablet 1 Ea PO HS Ondansetron Odt (Ondansetron) 4 Mg Tab.rapdis 4 Mg PO QID PRN Levothyroxine Sodium 137 Mcg Tablet 137 Mcg PO DAILY Omnitrope (Somatropin) 5 Mg/1.5 Ml (3.3 Mg/Ml) Cartridge 1 Mg INJ HS Desmopressin 10 Mcg/0.1 ml Spr (Desmopressin (Nonrefrigerated)) 10 Mcg/[place] (0.1 Ml) [place].pump 2 Sprays NS BID JEANETH WOMACK MD Jun 14, 2022 08:06
--- NOTE | 2022-06-14 08:09 | Discharge Inst-Simple/Standard ---
Discharge Inst-Standard Reconcile Patient Problems Problems Reviewed?: Yes Patient Instructions/Follow Up Plan of Care/Instructions/FU: 2 WK [facility]U CLINIC GET OUTPATIENT LABS ON 06/17/22 AT THE HOSPITAL Activity as Tolerated: Yes Discharge Diet: Regular Diet Return to The Hospital For: ANY WORSENING DIZZINESS, WEAKNESS, OR SYMPTOMS SIMILAR TO ADMISSION SYMPTOMS OR LIFETHREATENING ILLNESS/INJURY JEANETH WOMACK MD Jun 14, 2022 08:09
[2022-06-14] MEDS: PATIENT'S OWN MED (RX USE ONLY) PO SCH (08:27)
[2022-06-14] MEDS ORDERED: CALCIUM CARBONATE 500 MG (TUMS) TAB.CHEW PO SCH ×2 (09:00)
[2022-06-14] MEDS ORDERED: VITAMIN D3 25 MCG (1,000 UNITS) TABLET PO SCH (09:00)
[2022-06-14] MEDS ORDERED: HYDROCORTISONE 20 MG (CORTEF) TAB PO SCH (09:00)
[2022-06-14] MEDS ORDERED: NON-FORMULARY MEDICATION 1 EA EA (Cholecalciferol (Vitamin D3) (Vitamin D3) 50 MCG) PO SCH (09:00)
[2022-06-14 10:32] LABS: POTASSIUM 3.6 MMOL/L (3.6-5.0)
[2022-06-14 10:38] LABS: CREATININE SERUM 0.73 MG/DL (0.60-1.30)
--- NOTE | 2022-06-14 10:42 | Tele-ICU Progress Note ---
Subjective Date Seen by a Provider: Jun 14, 2022 Time Seen by a Provider: 08:45 Subjective/Events-last exam (Tele-ICU Physician , Progress Note ) Service provided via interactive audio and video telecommunications E-CARE system to a patient admitted to ICU bed in [facility]. Available chart/ vitals / labs / Images reviewed Video assessment done using teleICU camera, rest of exam as per RN Discussed with RN Events overnight : Afebrile hemodynamically stable Respiratory - I/O = Drips: Pressors- no Consultants: Hospital course: (06/12) 32y F from ER with dehydration, hyponatremia NA 111 and adrenal insuff, hypomag Patient is seen today due to persistent hyponatrremia A/P Fever and N/V 2 days duration - reportedly was NEG flu and covid 2 d ago , both negative today again . No abd pain or any localized symptoms now - suspected viral illness vs adrenal crisis( which can be provoked by infection - off abx , follow Acute adrenal failure ( not a crisis given NL BP ) -hydrocortisone (100 mg IV bolus given , will follow with 50 mg tid po Hyponatremia 11 on admission - baseline and duration unclear suspected acute , suspected due to Na loss and volume depletion caused by mineralocorticoid deficiency, on Desmopressin [place]US[place] FOLDER . 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 Discussed with Dr Chowdhury Discussed with RN to reach out if any questions or concerns A total of 20 minutes of critical care time was devoted to this patient today, required to treat and/or prevent further deterioration of critical care condition ( as above ) . I am remotely monitoring this patient from another state. I am unable to do the bedside exam, and history/physical and pertinent information is taken from other notes in the computer and bedside staff. . Sepsis Event Evaluation Height, Weight, BMI Height: 5'8" Weight: 130lbs. oz. 58.756756kw; 24.33 BMI Method:Stated Exam Exam Patient acknowledged, consented, and participated in this virtual visit which was conducted using real time audio/video Vital Signs Date Time Temp Pulse Resp B/P (MAP) Pulse Ox O2 Delivery O2 Flow Rate FiO2 06/14/22 10:00 57 109/63 (78) 96 Room Air 06/14/22 09:00 75 107/71 (83) 94 Room Air 06/14/22 08:00 58 106/70 (82) 95 Room Air 06/14/22 08:00 97 Room Air 06/14/22 07:45 36.8 06/14/22 07:00 57 106/88 (94) 93 Room Air 06/14/22 07:00 76 06/14/22 06:00 50 107/72 (84) 96 Room Air 06/14/22 05:00 61 100/73 (82) 95 Room Air 06/14/22 04:00 56 103/67 (79) 97 Room Air 06/14/22 03:16 96 Room Air 06/14/22 03:15 36.6 06/14/22 03:00 58 101/71 (81) 97 Room Air 06/14/22 02:00 62 88/53 (65) 95 Room Air 06/14/22 01:00 72 06/14/22 01:00 65 106/69 (81) 97 Room Air 06/14/22 00:00 96 Room Air 06/14/22 00:00 78 103/58 (73) 100 Room Air 06/13/22 23:00 56 90/52 (65) 96 Room Air 06/13/22 22:00 58 12 94/52 (66) 97 Room Air 06/13/22 21:00 60 15 98/60 (73) 97 Room Air 06/13/22 20:01 36.2 06/13/22 20:00 57 14 94/50 (65) 96 Room Air 06/13/22 20:00 95 Room Air 06/13/22 19:00 85 26 102/61 (75) 98 Room Air 06/13/22 19:00 80 06/13/22 18:00 50 10 92/57 (69) 95 Room Air 06/13/22 17:00 58 18 111/72 (85) 96 Room Air 06/13/22 16:00 63 14 105/67 (80) 96 Room Air 06/13/22 16:00 36.1 06/13/22 15:59 Room Air 06/13/22 15:00 69 23 109/69 (82) 95 Room Air 06/13/22 14:00 63 20 109/72 (84) 99 Room Air 06/13/22 13:00 69 06/13/22 13:00 60 15 106/65 (79) 97 Room Air 06/13/22 12:00 56 12 112/74 (87) 98 Room Air 06/13/22 11:43 36.3 06/13/22 11:37 Room Air 06/13/22 11:00 80 14 113/74 (87) 100 Room Air I & O 06/14/22 07:00 Intake Total 1105 ml Output Total 2375 ml Balance -1270 ml Height & Weight Height: 5'8" Weight: 130lbs. oz. 58.286065lm; 24.33 BMI Method:Stated General Appearance: No Apparent Distress, WD/WN HEENT: PERRL/EOMI, Pharynx Normal Neck: Full Range of Motion, Normal Inspection, Non Tender, Supple Respiratory: Chest Non Tender, Lungs Clear, Normal Breath Sounds, No Accessory Muscle Use, No Respiratory Distress Cardiovascular: Regular Rate, Rhythm Capillary Refill: Less Than 3 Seconds Gastrointestinal: non tender, soft Extremity: Normal Capillary Refill, Normal Inspection, Non Tender, No Calf Tenderness, No Pedal Edema Neurologic/Psychiatric: Alert, Oriented x3, No Motor/Sensory Deficits, Normal Mood/Affect, interior 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
[2022-06-14] MEDS ORDERED: HYDR20TA24 PO (10:52)
== END 2022-06-14 13:30 | disposition home or self-care (01) | DRG 641 ==
LOC: EDUNIT# 13:20 → ER 13:22 → ICU 16:39 → OBSVTOIN 17:22 → EDPENDDISTM 06-14 11:00 → ICU 06-14 15:34
PROVIDERS: ADMIT Family Medicine; ATTEND Family Medicine
PROC: 02HV33Z Insertion of Infusion Device into Superior Vena Cava, Percutaneous Approach (ICD-10-PCS; principal; 2022-06-13)
DX: E87.1 Hypo-osmolality and hyponatremia (principal); E27.40 Unspecified adrenocortical insufficiency; E83.51 Hypocalcemia; E03.9 Hypothyroidism, unspecified; M62.81 Muscle weakness (generalized); Z79.51 Long term (current) use of inhaled steroids; Z20.822 Contact with and (suspected) exposure to COVID-19; E86.0 Dehydration
CPT/HCPCS: 36415; 71045; 80048; 80053; 81000; 82024; 82947; 83735; 83935; 84100; 84300; 84439; 84443; 84480; 85007; 85025; 85027; 87081; 87636; 99283